=== PATIENT | female | born 2005 | race Caucasian/White ===

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

== ENCOUNTER 2025-05-25 13:34 | Emergency (ER) | payer BC, SELFPAY ==
[2025-05-25 13:36] VITALS: BP 126/75; PULSE 96; RESP 16; TEMP 36.8; O2SAT 98; BMI 23.8
--- OUTSIDE RECORDS SUMMARY | 2025-05-25 13:38 | XMS_ITS | Patient Health Record ---
Author Organization [facility] Address [address] [place] [address] Care Team Providers Care Accounts Payable Analyst Name Role Phone CONNOR, [facility] Primary Care Provider [facility], [facility] Unavailable [phone] Allergies No Known Allergies Reason For Referral Reason concentration proble ms Diagnosis 1 Concentration defici t (R41.840) Referral Organization [facility] Referring Provider First Name Alessandra Referring Provider Last Name Connor Referring Provider Speciality Nurse Dean li Referred Provider Katty Potts Referred Provider Specialty Specialist General Notes Carolann Linares 04/2024 04:11:26 PM >Patient has apt on 03/12/25 Referral Priority Routine Referral Appointment Date 03/12/2025 Medications Medication SIG (Take, Route, Frequency, Duration) Notes Start Date End Date Status medroxyPROGESTERone Acetate 150 MG/ML 1 ml Intramuscular Not-Takin g Escitalopram Oxalate 10 MG 1 tablet Oral ly Once a day for 30 days 09/04/2024 Active Clindamycin Phosphate 1 % APPLY SWAB TO ACNE AREA TWO TIMES A DAY DIRECTED for 30 Not-Taking busPIRone HCl 10 MG 1/2 to 1 tab Orally Twice a day prn anxiety for 30 days Not-Taking Immunizations Vaccine Route Administration Date Status Comme nts Flucelvax Trivalent, Syringe 0.5 mL, PF IM Intramuscular 09/04/2024 Administered suplied by vaxcare/pt tolerated well/instructed to wait 20 min Social History Tobacco Use: Social History Observation Description Date Details (start date - stop date) Never Smoker NA - NA xTobacco Use/Smoking Question Answer Notes Are you a nonsmoker Alcohol Screen (Audit-C) Question Answer Notes Did you have a drink containing alcohol in the p ast year? No Points 0 Interpretation Negative PHQ-9 Question Answer Notes Little interest or pleasure in doing things Not at all Feeling down, depressed, or hopeless Not at all Trouble falling or staying asleep, or sleeping t oo much Not at all Feeling tired or having little energy Not at all Poor appetite or overeating Not at all Feeling bad about yourself, or that you are a failure, or have let yourself or your family down Not at all Trouble concentrating on thi ngs, such as reading the newspaper or watching television Not at all Moving or speaking so slowly that other people could have noticed. Or the opposite ? being so fidgety or restless that you have been moving around a lot more than usual Not at all Thoughts that you would be b estrada off , or of hurting yourself in some way Not at all Total Score 0 Section Notes: Depression screen completed 02/01/2023 score 1 Depression screen completed 09/04/2024 score 0 Depression screen completed 09/04/2024 score 0 Problems Problem Type SNOMED Code ICD Code Onset Dates Problem Status W/U Status Risk Notes Problem 30364346 Acne vulgaris (L70.0) Active confirmed Problem 39026272 Anxiety (F41.9) Active confirmed Problem Poor concentration (finding) (04512934) Concentration deficit (R41.840) Active confirmed Problem 48275415 Other depression (F32.89) Active confirmed Vital Signs Heart Rate 60 /min 09/28/2024 Respiratory Rate 18 /min 09/28/2024 Blood pressure diastolic 66 mm Hg 09/28/2024 Oximetry 99 % 09/28/2024 Height-cm 170.18 cm 09/28/2024 Weight-kg 71.21 kg 09/28/2024 Height 67 in 09/28/2024 BMI Percentile 76.98 % 09/28/2024 Blood pressure systolic 120 mm Hg 09/28/2024 Weight 157 lbs 09/28/2024 BMI 24.59 kg/m2 09/28/2024 Encounters Encounter Location Date Provider Diagnosis [facility] [address] [address] 09/04/2024 Alessandra Connor Encounter for immunization Z23 ; Anxiety F41.9 ; Depression screen Z13.31 ; Encounter for administration of vaccine Z23 and Concentration deficit R41.840 [facility] [address] [address] 09/28/2024 [facility] Anxiety F41.9 Assessments Encounter Date Diagnosis (ICD Code) Assessment Notes Treatment Notes Treatment Clinical Notes Section Notes 09/04/2024 Encounter for immunization (ICD-10 - Z23) flu vaccine Immunization supplied by [employer]. 09/04/2024 Anxiety (ICD-10 - F41.9) lexapro 09/28/2024 Anxiety (ICD-10 - F41.9) lexapro 09/04/2024 Depression screen (ICD-10 - Z13.31) 09/04/2024 Encounter for administration of vaccine (ICD-10 - Z23) 09/04/2024 Concentration deficit (ICD-10 - R41.840) dr potts 09/04/2024 Other Questions asked and answered; discharged to home. Give Flu vaccine as directed per provider 09/28/2024 Other Questions asked and answered; discharged to home. Plan Of Treatment No Information Insurance Providers Payer Name Payer Address Payer Phone Subscriber Number Group Number Insured Name Patient Relationship to Insured Coverage Start Date Coverage End Date [employer] [place] [address] [place] [address] [id number] Tess Garcia Self - patient is the insured Medical (General) History Medical History History ICD Code acne hyperthyroidism Chicken Pox Surgical History Surgery Date(Month/Year) tubes in ears 2005
--- OUTSIDE RECORDS SUMMARY | 2025-05-25 13:38 | XMS_ITS | Clinical Summary ---
Author Organization [facility] Address [address] [place] [address] Care Team Providers Care Deputy Clerk Name Role Phone Unavailable Primary Care Provider Unavailabl e Social History Tobacco Use Types Packs/Day Years Used Date Smoking Tobacco: Never Assessed Adolescent Education Answer Date Record ed Getting School Help Needed Not on file 06/30 Comments Unknown Sex and Gender Information Value Date Recorded Sex Assigned at Not on file Legal Sex Female 10:57 AM CDT Gender Identity Not on file Sexual Orientation Not on file Plan of Treatment Health Maintenance Due Date Last Done Comments CHLAMYDIA SCREENING (ANNUAL) 11-24 YEARS 2016 HPV VACCINES (1 - 3-dose series) 2020 DTAP/TDAP/TD VACCINES (1 - Tdap) 2024 HEPATITIS B VACCINES (1 of 3 - 19+ 3-dose series) 03/22 INFLUENZA VACCINE (#1) 2025 Insurance [facility] BLUE ACCESS/TRUE BLUE PPO BLUE ACCESS/TRUE BLUE PPO
--- NOTE | 2025-05-25 13:46 | XRR_ITS ---
PROCEDURE INFORMATION: Exam: XR Chest Exam date and time: 05/25/2025 1:46 PM Age: 20 years old Clinical indication: Cough and dyspnea; Additional info: Dyspnea/cough TECHNIQUE: Imaging protocol: Radiologic exam of the chest. Views: 1 view. COMPARISON: No relevant prior studies available. FINDINGS: Lungs: Scattered pulmonary granulomas. No consolidation. Pleural spaces: Unremarkable. No pleural effusion. No pneumothorax. Heart/Mediastinum: Unremarkable. No cardiomegaly. Bones/joints: Unremarkable. XR/XR chest 1V portable [id number] IMPRESSION: No acute cardiopulmonary process.
[2025-05-25 14:40] VITALS: BP 121/71; PULSE 85; RESP 16; O2SAT 100
[2025-05-25 14:51] LABS: Hematocrit 34.3 % (36-47); Hemoglobin 11.80 g/dL (12.4-14.8); Mean Corpuscular HGB Conc 34.4 g/dL (30-55); Mean Corpuscular Hemoglobin 30.9 pg (27-33); Mean Corpuscular Volume 89.8 fl (85-98); Nucleated Red Blood Cells % 0 %; Platelet Count 254 10^3/cmm (157-399); Red Blood Count 3.82 10^6/uL (3.85-5.65); White Blood Count 6.61 10^3/uL (4.5-13.0)
[2025-05-25 15:07] LABS: HCG, Serum Qual Negative (Negative)
[2025-05-25 15:14] LABS: Alanine Aminotransferase 16 U/L (0-33); Albumin Level 4.5 g/dL (3.5-5.2); Alkaline Phosphatase 42 U/L (35-105); Anion Gap 14.4 (5-19); Aspartate Amino Transferase 20 U/L (0-32); Blood Urea Nitrogen 10 mg/dL (6-20); Calcium 9.2 mg/dL (8.5-10.5); Carbon Dioxide 22 mmol/L (22-29); Chloride 106 mmol/L (98-107); Creatinine Clr Calc Pharmacy 152.3823; Globulin 3.1 g/dL (1.3-4.6); Glucose 113 mg/dL (65-115); Magnesium 2.3 mg/dL (1.7-2.3); Osmolality Calculated 286 mOsm/kg (285-295); Potassium 4.4 mmol/L (3.5-5.1); Sodium 138 mmol/L (136-145); Total Protein 7.6 g/dL (6.6-8.7)
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
[2025-05-25 15:29] VITALS: BP 121/71; PULSE 69; RESP 18; O2SAT 96
== END 2025-05-25 15:30 | disposition home or self-care (01) ==
PROVIDERS: Family Medicine; Emergency Provider Emergency Medicine; PCP Nurse Practitioner Family
DX: G40.909 Epilepsy, unspecified, not intractable, without status epilepticus (principal); T75.1XXA Unspecified effects of drowning and nonfatal submersion, initial encounter; X58.XXXA Exposure to other specified factors, initial encounter
CPT/HCPCS: 36415; 71045; 80053; 83735; 84703; 85025; 99284

== ENCOUNTER → 2025-09-06 15:47 | Outpatient (BNVA) | payer BC, SELFPAY | PROVIDERS: PCP Nurse Practitioner Family; Visit Provider Nurse Practitioner Women's Health | DX: Z11.3 Encounter for screening for infections with a predominantly sexual mode of transmission (principal) | CPT/HCPCS: 87491; 87591; 87661 ==

== ENCOUNTER → 2025-10-29 08:47 | Outpatient (BNVA) | payer BC, SELFPAY | PROVIDERS: PCP Nurse Practitioner Family; Visit Provider Nurse Practitioner Women's Health | DX: R30.0 Dysuria (principal); N89.8 Other specified noninflammatory disorders of vagina | CPT/HCPCS: 84315; 87086 ==